=== PATIENT | male | born 1960 | race African-American/Black ===

== ENCOUNTER 2016-07-04 00:53 | Emergency (ER) | payer OTHER ==
[2016-07-04 01:03] VITALS: BP 129/69; PULSE 54; TEMP 98.1; BMI 34.7
[2016-07-04] MEDS ORDERED: OXYCODONE/APAP 5/325MG COMBO TABLET PO ONE (01:36)
--- NOTE | 2016-07-04 02:38 | PDOC ---
[id number] No Limitations - History of Present Illness Initial Comments: 07/04/16 02:46 The patient is a 55 year old male with a significant past medical history of diabetes, HIV, seizures, encephalopathy of brain, who presents to the ED with right shoulder pain that radiates down to the hand. He states he is experiencing tremors as well. He had tylenol earlier today but with no alleviation. Patient denies fever, nausea, vomiting, diarrhea, hematochezia. <Anup Yang - Last Filed: 07/04/16 02:46> <Emi Gilliam - Last Filed: 07/12/16 04:51> - General Chief Complaint: Pain Stated Complaint: PAIN IN RT ARM Time Seen by Provider: 07/04/16 01:25 Past History <Anup Yang - Last Filed: 07/04/16 02:46> - Past Medical History Diabetes: Yes HIV: Yes Seizures: Yes - Surgical History Cholecystectomy: Yes - Psycho/Social/Smoking Cessation Hx Suicidal Ideation: No Smoking History: Never smoked <Emi Gilliam - Last Filed: 07/12/16 04:51> - Past Medical History Allergies/Adverse Reactions: Allergies Allergy/AdvReac Type Severity Reaction Status Date / Time No Known Allergies Allergy Verified 07/04/16 01:03 Home Medications: Ambulatory Orders Acyclovir [Zovirax -] 1,000 mg PO DAILY 07/04/16 Calcium Carbonate [Calcium] 600 mg PO DAILY 07/04/16 Cholecalciferol (Vitamin D3) [Vitamin D3] 50,000 unit PO ASDIR 07/04/16 Clonazepam 0.25 mg PO BID 07/04/16 Elviteg/Chela/Emtric/Tenofo Ala [Genvoya Tablet] 1 each PO DAILY 07/04/16 Levetiracetam [Keppra] 3,000 mg PO DAILY 07/04/16 Metformin HCl 1,700 mg PO DAILY 07/04/16 Multivit-Min/Iron Fum/Folic AC [Kynpd-Uodpnnv-Ztktghgh Tablet] 1 tab PO DAILY Oxycodone HCl/Acetaminophen [Percocet 5/325 -] 1 tab PO Q6H #14 tablet MDD 4 05/21 Promethazine HCl [Phenergan -] 400 mg PO DAILY 07/04/16 Review of Systems - Review of Systems Comments:: 07/04/16 02:46 GENERAL/CONSTITUTIONAL: No fever or chills. No weakness. HEAD, EYES, EARS, NOSE AND THROAT: No change in vision. No ear pain or discharge. No sore throat. CARDIOVASCULAR: No chest pain or shortness of breath. RESPIRATORY: No cough, wheezing, or hemoptysis. GASTROINTESTINAL: No nausea, vomiting, diarrhea or constipation. GENITOURINARY: No dysuria, frequency, or change in urination. MUSCULOSKELETAL: + right shoulder pain radaiting down to the right hand. No neck or back pain. SKIN: No rash NEUROLOGIC: No headache, vertigo, loss of consciousness, or change in strength/ sensation. ENDOCRINE: No increased thirst. No abnormal weight change. HEMATOLOGIC/LYMPHATIC: No anemia, easy bleeding, or history of blood clots. ALLERGIC/IMMUNOLOGIC: No hives or skin allergy. <Anup Yang - Last Filed: 07/04/16 02:46> *Physical Exam - Vital Signs Last Vital Signs Temp Pulse Resp BP Pulse Ox 98.1 F 54 L 18 129/69 99 07/04/16 01:00 07/04/16 01:00 07/04/16 01:00 07/04/16 01:00 07/04/16 01:00 - Physical Exam Comments: 07/04/16 02:47 GENERAL: Awake, alert, and fully oriented, in no acute distress HEAD: No signs of trauma EYES: PERRLA, EOMI, sclera anicteric, conjunctiva clear ENT: Auricles normal inspection, hearing grossly normal, nares patent, oropharynx clear without exudates. Moist mucosa NECK: Normal ROM, supple, no lymphadenopathy, JVD, or masses LUNGS: Breath sounds equal, clear to auscultation bilaterally. No wheezes, and no crackles HEART: Regular rate and rhythm, normal S1 and S2, no murmurs, rubs or gallops ABDOMEN: Soft, nontender, normoactive bowel sounds. No guarding, no rebound. No masses EXTREMITIES: Normal range of motion, no edema. No clubbing or cyanosis. No cords, erythema, or tenderness NEUROLOGICAL: Cranial nerves II through XII grossly intact. Normal speech, normal gait SKIN: Warm, Dry, normal turgor, no rashes or lesions noted. <Anup Yang - Last Filed: 07/04/16 02:46> - Vital Signs Last Vital Signs Temp Pulse Resp BP Pulse Ox 98.1 F 54 L 18 129/69 99 07/04/16 01:00 07/04/16 01:00 07/04/16 01:00 07/04/16 01:00 07/04/16 01:00 <Emi Gilliam - Last Filed: 07/12/16 04:51> Medical Decision Making - Medical Decision Making 07/12/16 04:49 Pt comes with right upper extremity pain, and states that he didn't injure it, and that he has no broken bones and he has FROM, but he has an ache in the arm and wants to make sure that nothing is wrong. Exam is normal. He was sent for a duplex doppler ultrasound to r/oDVT. No DVT present. Pt is satisfied and feeling better. He was discharged to follow with his PMD. <Emi Gilliam - Last Filed: 07/12/16 04:51> *DC/Admit/Observation/Transfer - Attestations Scribe Attestion: 07/04/16 02:47 Documentation prepared by Anup Yang, acting as medical assistant instructor for Emi Gilliam MD. <Anup Yang - Last Filed: 07/04/16 02:46> <Emi Gilliam - Last Filed: 07/12/16 04:51> Diagnosis at time of Disposition: Multiple joint pain - Discharge Dispostion Disposition: HOME - Prescriptions Prescriptions: Oxycodone HCl/Acetaminophen [Percocet 5/325 -] 1 tab PO Q6H #14 tablet MDD 4 - Referrals Referrals: STAFF,NOT ON [Primary Care Provider] -
[2016-07-04] MEDS ORDERED: OXYCODONE/APAP 5/325MG COMBO TABLET ONE (03:11)
== END 2016-07-04 04:00 | disposition home or self-care (01) ==
LOC: JER 00:53
DX: M25.511 Pain in right shoulder (principal); E11.9 Type 2 diabetes mellitus without complications; Z21 Asymptomatic human immunodeficiency virus [HIV] infection status
CPT/HCPCS: 93971; 99282-25

== ENCOUNTER 2018-02-20 04:38 | Emergency (ER) | payer SELFPAY ==
[2018-02-20] MEDS ORDERED: ALBUTEROL SO4 2.5/IPRATROPIUM 0.5 INH SOL 3 ML VIAL.NEB. NEB ONE ×2 (05:53→05:56)
--- NOTE | 2018-02-20 05:54 | PDOC ---
History of Present Illness - General Chief Complaint: Cold Symptoms Stated Complaint: SEIZURE,COUGHING Time Seen by Provider: 02/20/18 05:24 History Source: Patient Exam Limitations: No Limitations - History of Present Illness Initial Comments: 02/20/18 05:49 Patient is a 57-year-old male with history of HTN, diabetes, HIV positive CD4 980 VL undetectable, HIV encephalitis, complaining of a cough x 2-3 days. Cough is nonproductive but has been persistently worse that it keeps him up at night, last night did not get any sleep. Reports that he has been having body ache. Denies chills fevers, nausea, vomiting. He does not take the flu shot. Patient also complains of seizure episodes since 4 days. States he had 3 episodes of seizure or days ago and then had 1 episode last night. He reports he is compliant with all his medications and has been on the same dose of Keppra and phenytoin for the past 8 years. States he called his neurologist, however, is expecting a call him back today to give him an appointment to come in for evaluation. PMD: Nerissa Kevin NEURO: [place] PMHX: as above PSOCHX: (-) cig, (-) etoh, (-) drug ALL: NKDA GENERAL/CONSTITUTIONAL: [No fever or chills. No weakness. No weight change.] HEAD, EYES, EARS, NOSE AND THROAT: [No change in vision. No ear pain or discharge. No sore throat.] CARDIOVASCULAR: [No chest pain or shortness of breath.] RESPIRATORY: (+) cough, (-) wheezing, or hemoptysis.] GASTROINTESTINAL: [No nausea, vomiting, diarrhea or constipation. No rectal bleeding.] GENITOURINARY: [No dysuria, frequency, or change in urination.] MUSCULOSKELETAL: (+) joint or muscle swelling or pain. No neck or back pain.] SKIN AND BREASTS: [No rash or easy bruising.] NEUROLOGIC: [No headache, vertigo, loss of consciousness, or loss of sensation.] PSYCHIATRIC: [No depression or anxiety.] ENDOCRINE: [No increased thirst. No abnormal weight change.] HEMATOLOGIC/LYMPHATIC: [No anemia, easy bleeding, or history of blood clots.] ALLERGIC/IMMUNOLOGIC: [No hives or skin allergy. No latex allergy.] GENERAL: [The patient is awake, alert, and fully oriented, in no acute distress. ] HEAD: [Normal with no signs of trauma.] EYES: [Pupils equal, round and reactive to light, extraocular movements intact, sclera anicteric, conjunctiva clear.] ENT: [Ears normal, nares patent, oropharynx clear without exudates. Moist mucous membranes.] NECK: [Normal range of motion, supple without lymphadenopathy, JVD, or masses.] LUNGS: [Breath sounds equal, clear to auscultation bilaterally. No wheezes, and no crackles.] HEART: [Regular rate and rhythm, normal S1 and S2 without murmur, rub.] ABDOMEN: [Soft, nontender, normoactive bowel sounds. No guarding, no rebound. No masses.] EXTREMITIES: [Normal range of motion, no edema. No clubbing or cyanosis. No cords, erythema, or tenderness.] NEUROLOGICAL: [Cranial nerves II through XII grossly intact. Normal speech, normal gait.] PSYCH: [Normal mood, normal affect.] SKIN: [Warm, Dry, normal turgor, no rashes or lesions noted.] Past History - Past Medical History Allergies/Adverse Reactions: Allergies Allergy/AdvReac Type Severity Reaction Status Date / Time No Known Allergies Allergy Verified 02/20/18 06:50 Home Medications: Ambulatory Orders Acyclovir [Zovirax -] 1,000 mg PO DAILY 07/04/16 Calcium Carbonate [Calcium] 600 mg PO DAILY 07/04/16 Cholecalciferol (Vitamin D3) [Vitamin D3] 50,000 unit PO ASDIR 07/04/16 Clonazepam 0.25 mg PO BID 07/04/16 Elviteg/Cob/Emtri/Tenof Alafen [Genvoya Tablet] 1 each PO DAILY 07/04/16 Levetiracetam [Keppra] 3,000 mg PO DAILY 07/04/16 Multivit-Min/Iron Fum/Folic AC [Srcbn-Ancolfm-Pxjvhlph Tablet] 1 tab PO DAILY Oxycodone HCl/Acetaminophen [Percocet 5/325 -] 1 tab PO Q6H #14 tablet MDD 4 05/21 Promethazine HCl [Phenergan -] 400 mg PO DAILY 07/04/16 metFORMIN HCL [Metformin HCl] 1,700 mg PO DAILY 07/04/16 Diabetes: Yes Seizures: Yes - Surgical History Cholecystectomy: Yes - Suicide/Smoking/Psychosocial Hx Smoking History: Never smoked ED Treatment Course - RADIOLOGY Radiology Studies Ordered: Category Date Time Status CHEST PA & LAT [RAD] Stat Radiology 02/20/18 05:35 Ordered Medical Decision Making - Medical Decision Making 02/20/18 05:49 Patient is a 57-year-old male with history of HTN, diabetes, HIV positive CD4 980 VL undetectable, HIV encephalitis, complaining of a cough x 2-3 days. Cough is nonproductive but has been persistently worse that it keeps him up at night, last night did not get any sleep. Reports that he has been having some chills and body ache. Denies fevers, nausea, vomiting. Patient also complains of seizure episodes since 4 days. States he had 3 episodes of seizure or days ago and then had 1 episode last night. He reports he is compliant with all his medications. States he called his neurologist, however would call him back today to give him an appointment. cxr, neb treatment flu swab 02/20/18 07:00 Endorsed to the a.m. team request official reading on the x-ray. Follow flu swab. *DC/Admit/Observation/Transfer Diagnosis at time of Disposition: Cough, Seizure - Referrals - Patient Instructions - Post Discharge Activity
[2018-02-20 06:02] VITALS: PULSE 75; BMI 31.3
--- NOTE | 2018-02-20 07:17 | PDOC ---
*Physical Exam - Vital Signs Last Vital Signs Temp Pulse Resp BP Pulse Ox 98.0 F 75 18 132/80 96 02/20/18 04:50 02/20/18 04:50 02/20/18 04:50 02/20/18 04:50 02/20/18 04:50 - Physical Exam General Appearance: Yes: Nourished, Appropriately Dressed. No: Apparent Distress Respiratory/Chest: positive: Lungs Clear, Normal Breath Sounds. negative: Chest Tender, Respiratory Distress, Accessory Muscle Use, Rhonchi, Stridor, Wheezing Integumentary: positive: Normal Color, Dry, Warm Neurologic: positive: Fully Oriented, Alert, Normal Mood/Affect, Normal Response ED Treatment Course - Medications Given in the ED: ED Medications Discontinued Medications Generic Name Dose Route Start Last Admin Trade Name Freq PRN Reason Stop Dose Admin Albuterol/Ipratropium 1 amp 02/20/18 05:53 02/20/18 05:59 Duoneb - NEB 02/20/18 05:54 1 amp ONCE ONE Administration Medical Decision Making - Medical Decision Making 02/20/18 07:16 Sign out received from STEFFANY Pierre; pt presenting with dry cough, HIV positive. Pending CXR read and influenza testing. Pt also reported having multiple seizures this past week, but has not had a seizure while in the ED or in the past 24 hours. Pt states he has a call out to his neurologist at [facility] for a new appointment. Pt states he has an appointment for 03/27/18, however, he would like to be seen sooner. 02/20/18 07:56 CXR with atelectsis, No gross infiltate at this time. However, given cough with atelectisis on CXR, will treat preliminarily with abx. Rapid flu negative at this time. Pt reports feeling well and would like to go home. Vitals stable, afebrile. O2 sat 98%. DC home with PCP and neurology follow up. I discussed the physical exam findings, ancillary test results and final diagnoses with the patient. I answered all of the patient's questions. The patient was satisfied with the care received and felt comfortable with the discharge plan and treatment plan. The Patient agrees to follow up with the primary care physician/specialist within 24-72 hours. Return precautions were given. *DC/Admit/Observation/Transfer Diagnosis at time of Disposition: Cough, Seizure - Discharge Dispostion Disposition: HOME Condition at time of disposition: Stable Decision to Admit order: No - Prescriptions Prescriptions: Albuterol Sulfate Inhaler - [Ventolin HFA Inhaler -] 1 - 2 inh PO Q4H #1 inhaler Azithromycin [Zithromax 250mg Tablets -] 250 mg PO UTDICT #6 tab Guaifenesin Dm [Robitussin Dm -] 10 ml PO Q6H #200 ml - Referrals Referrals: Pedro Schwartz MD [Staff Physician] - - Patient Instructions Additional Instructions: Your flu testing was negative today. Your chest x-ray showed some atelectasis. Given your cough we will treat with antibiotics at this time. Take the azithromycin as prescribed. Please follow-up with your neurologist for your seizures. Continue all medication as previously prescribed. Follow-up with her primary care doctor in 3-5 days for your cough. If you do not have one a referral has been provided. Return to the emergency department for fevers, chills, worsening cough despite treatment, lightheadedness, chest pain, or if you have any changes in your symptoms. - Post Discharge Activity Forms/Work/School Notes: Back to Work
[2018-02-20 08:17] VITALS: BP 114/75; TEMP 98.4
== END 2018-02-20 08:16 | disposition home or self-care (01) ==
LOC: JER 04:38
PROC: 3E0F7GC Introduction of Other Therapeutic Substance into Respiratory Tract, Via Natural or Artificial Opening (ICD-10-PCS; principal; 2018-02-20)
DX: R05 Cough (principal); G40.909 Epilepsy, unspecified, not intractable, without status epilepticus; I10 Essential (primary) hypertension; E11.9 Type 2 diabetes mellitus without complications; Z79.84 Long term (current) use of oral hypoglycemic drugs; Z21 Asymptomatic human immunodeficiency virus [HIV] infection status
CPT/HCPCS: 71046-TC-FY; 87804; 99283-25

== ENCOUNTER 2024-03-05 18:48 | Inpatient (IN) | payer SELFPAY ==
[2024-03-05] MEDS ORDERED: levETIRAcetam 500 MG/5 ML INJECTION VIAL IVPB ONE (19:40)
[2024-03-05] MEDS: SODIUM CHLORIDE 0.9% 500 ML INFUS.BAG IV ONE (20:08)
[2024-03-05] MEDS: levETIRAcetam 500 MG/5 ML INJECTION VIAL IVPB ONE (20:08)
[2024-03-05 20:16] LABS: BASO % 0.5 % (0-2.0); EOS % 0.4 % (0-4.5); HEMATOCRIT 40.9 % (35.4-49); HEMOGLOBIN 13.3 GM/dL (11.7-16.9); LYMPH % 18.7 % (8-40); MCH 30.2 pg (25.7-33.7); MCHC 32.6 g/dl (32.0-35.9); MEAN CELL VOLUME 92.6 fl (80-96); MEAN PLT VOLUME 9.7 fl (7.5-11.1); MONO % 13.1 % (3.8-10.2); NEUT % 67.3 % (42.8-82.8); PLATELET COUNT 197 10^3/uL (134-434); RBC 4.42 M/mm3 (4.00-5.60); RDW 18.1 % (11.9-15.9); WHITE BLOOD COUNT 9.8 K/mm3 (4.0-10.0)
[2024-03-05 20:30] LABS: ACTIVATED PTT 34.8 SECONDS (25.2-36.5); INR 1.04 (0.83-1.09); PROTHROMBIN TIME (PATIENT) 11.9 SEC (9.7-13.0)
[2024-03-05 20:43] LABS: POTASSIUM 3.8 mmol/L (3.5-5.1)
[2024-03-05 20:45] LABS: ALBUMIN 3.1 g/dl (3.4-5.0); BLOOD UREA NITROGEN 29.5 mg/dL (7-18); CALCIUM 9.8 mg/dL (8.5-10.1); MAGNESIUM 2.2 mg/dL (1.8-2.4)
[2024-03-05 20:48] LABS: CREATININE 1.3 mg/dL (0.55-1.3)
[2024-03-05 20:49] LABS: LACTIC ACID 2.4 mmol/L (0.4-2.0); PHOSPHOROUS 2.5 mg/dL (2.5-4.9)
[2024-03-05 20:50] LABS: BILIRUBIN,TOTAL 0.3 mg/dL (0.2-1)
[2024-03-05] MEDS ORDERED: CEFTRIAXONE 1 G/50 ML PREMIX 50 ML IVPB ONE (21:16)
[2024-03-05] MEDS ORDERED: AZITHROMYCIN IVPB 500 MG/250 ML BAG IVPB ONE (21:16)
[2024-03-05] MEDS: CEFTRIAXONE 1,000 MG in DEXTROSE 5%-WATER - 50 ML IVPB ONE (21:24)
[2024-03-05] MEDS: AZITHROMYCIN IVPB 500 MG in DEXTROSE 5%-WATER - 250 ML IVPB ONE (21:46)
[2024-03-05] MEDS ORDERED: HEPARIN NA (PORCINE) 5,000 UNITS/ML 1ML VIAL ONE (22:46)
[2024-03-05] MEDS: HEPARIN NA (PORCINE) 5,000 UNITS/ML 1ML VIAL SQ SCH (22:57)
[2024-03-05] MEDS ORDERED: INSULIN ASPART SLIDING SCALE (NOVOLOG) 1 VIAL SQ ONE (23:08)
[2024-03-05] MEDS: INSULIN ASPART SLIDING SCALE (NOVOLOG) 1 VIAL SQ SCH (23:17)
[2024-03-06 04:30] LABS: EPI CELLS 4 /uL (0-25.1); HYALINE CASTS 0 /uL (0-3.1); URINE APPEARANCE Error; URINE BACTERIA 3 /uL (0-1359); URINE BILIRUBIN NEGATIVE (NEGATIVE); URINE COLOR YELLOW; URINE GLUCOSE (UA) 3+ (NEGATIVE); URINE KETONE TRACE (NEGATIVE); URINE LEUK ESTERASE NEGATIVE (NEGATIVE); URINE NITRITE NEGATIVE (NEGATIVE); URINE PROTEIN 1+ (NEGATIVE); URINE RBC 7 /uL (0-23.9); URINE UROBILINOGEN 0.2 mg/dL (0.2-1.0); URINE WBC 11 /uL (0-25.8)
[2024-03-06 05:20] LABS: LACTIC ACID 2.5 mmol/L (0.4-2.0)
[2024-03-06] MEDS ORDERED: ALBUTEROL SO4 HFA INHALER IH PRN (05:34)
[2024-03-06] MEDS ORDERED: PATIENT'S OWN MEDICATION (NON-FORMULARY) (Cholecalciferol (Vitamin D3) [Vitamin D3] 50,000 PO SCH (05:45)
[2024-03-06] MEDS: SODIUM CHLORIDE 1,000 ML IV SCH (06:06)
[2024-03-06 08:55] LABS: BASO % 0.6 % (0-2.0); EOS % 0.1 % (0-4.5); HEMATOCRIT 35.3 % (35.4-49); HEMOGLOBIN 11.7 GM/dL (11.7-16.9); LYMPH % 28.4 % (8-40); MCH 30.4 pg (25.7-33.7); MCHC 33.1 g/dl (32.0-35.9); MEAN CELL VOLUME 91.8 fl (80-96); MEAN PLT VOLUME 9.3 fl (7.5-11.1); MONO % 14.5 % (3.8-10.2); NEUT % 56.4 % (42.8-82.8); PLATELET COUNT 185 10^3/uL (134-434); RBC 3.85 M/mm3 (4.00-5.60); RDW 18.2 % (11.9-15.9); WHITE BLOOD COUNT 8.7 K/mm3 (4.0-10.0)
[2024-03-06 09:12] LABS: POTASSIUM 3.5 mmol/L (3.5-5.1)
[2024-03-06 09:18] LABS: ALBUMIN 2.6 g/dl (3.4-5.0); CALCIUM 8.6 mg/dL (8.5-10.1)
[2024-03-06 09:19] LABS: BLOOD UREA NITROGEN 17.1 mg/dL (7-18)
[2024-03-06 09:22] LABS: CREATININE 0.9 mg/dL (0.55-1.3); PHOSPHOROUS 2.6 mg/dL (2.5-4.9)
[2024-03-06 09:23] LABS: BILIRUBIN,TOTAL 0.9 mg/dL (0.2-1); TOT PROT 6.8 g/dl (6.4-8.2)
[2024-03-06] MEDS: MULTIVITAMINS THER W-MINERALS COMBO TABLET (FP) PO SCH (10:09)
[2024-03-06] MEDS: CALCIUM (OYSTER SHELL) 500 MG TABLET (FP) PO SCH (10:10)
[2024-03-06] MEDS: ENOXAPARIN NA (PORCINE) 40 MG/0.4 ML DISP.SYRIN SQ SCH (10:10)
[2024-03-06] MEDS: levETIRAcetam 500 MG TABLET (FP) PO SCH (12:21)
[2024-03-06] MEDS: DIVALPROEX SODIUM 250 MG TABLET E.C. PO SCH (12:21)
[2024-03-06] MEDS: ASPIRIN COATED 81 MG TABLET.EC PO SCH (12:21)
[2024-03-06] MEDS: LISINOPRIL 20 MG TABLET PO SCH (12:21)
[2024-03-06] MEDS: valACYclovir HCL 500 MG TABLET (FP) PO SCH (12:21)
[2024-03-06] MEDS ORDERED: CEFTRIAXONE 1 GM in DEXTROSE 5%-WATER - 50 ML IVPB SCH (14:45)
[2024-03-06] MEDS: CEFTRIAXONE 1 G/50 ML PREMIX 50 ML IVPB SCH (15:33)
[2024-03-06] MEDS: ACYCLOVIR 800 MG TABLET PO SCH (18:14)
[2024-03-06] MEDS: levETIRAcetam 250 MG TABLET PO SCH (18:14)
[2024-03-06] MEDS: CLONAZEPAM 0.25 MG PO SCH (18:14)
[2024-03-06] MEDS: ROSUVASTATIN CA 20 MG TABLET PO SCH (21:34)
[2024-03-06] MEDS: GABAPENTIN 100 MG CAPSULE PO SCH (21:35)
[2024-03-06] MEDS ORDERED: ROSUVASTATIN CA 40 MG TABLET PO SCH (22:00)
[2024-03-07 09:28] LABS: POTASSIUM 3.7 mmol/L (3.5-5.1)
[2024-03-07 09:34] LABS: BASO % 0.3 % (0-2.0); EOS % 0.7 % (0-4.5); HEMATOCRIT 35.1 % (35.4-49); HEMOGLOBIN 11.4 GM/dL (11.7-16.9); LYMPH % 34.8 % (8-40); MCH 30.2 pg (25.7-33.7); MCHC 32.5 g/dl (32.0-35.9); MEAN CELL VOLUME 92.8 fl (80-96); MONO % 14.8 % (3.8-10.2); NEUT % 49.4 % (42.8-82.8); PLATELET COUNT 184 10^3/uL (134-434); RBC 3.78 M/mm3 (4.00-5.60); RDW 17.8 % (11.9-15.9); WHITE BLOOD COUNT 8.4 K/mm3 (4.0-10.0)
[2024-03-07 09:39] LABS: ALBUMIN 2.4 g/dl (3.4-5.0); BLOOD UREA NITROGEN 11.4 mg/dL (7-18)
[2024-03-07 09:40] LABS: CALCIUM 8.4 mg/dL (8.5-10.1)
[2024-03-07 09:42] LABS: CREATININE 0.8 mg/dL (0.55-1.3)
[2024-03-07 09:43] LABS: BILIRUBIN,TOTAL 0.5 mg/dL (0.2-1); TOT PROT 6.4 g/dl (6.4-8.2)
[2024-03-07 16:31] VITALS: BMI 30.2
[2024-03-07] MEDS: ACETAMINOPHEN 325 MG TABLET (FP) PO PRN (16:36)
[2024-03-07 21:00] LABS: EPI CELLS 5 /uL (0-25.1); HYALINE CASTS 0 /uL (0-3.1); URINE APPEARANCE CLEAR; URINE BACTERIA 1 /uL (0-1359); URINE BILIRUBIN NEGATIVE (NEGATIVE); URINE COLOR YELLOW; URINE GLUCOSE (UA) 3+ (NEGATIVE); URINE KETONE TRACE (NEGATIVE); URINE LEUK ESTERASE NEGATIVE (NEGATIVE); URINE NITRITE NEGATIVE (NEGATIVE); URINE PROTEIN 1+ (NEGATIVE); URINE RBC 21 /uL (0-23.9); URINE WBC 8 /uL (0-25.8)
[2024-03-08] MEDS: BICTEGRAV/EMTRICIT/TENOFOV (BIKTARVY) 50-200-25 MG TABLET PO SCH (08:47)
[2024-03-08 09:33] LABS: BASO % 0.4 % (0-2.0); EOS % 1.1 % (0-4.5); HEMATOCRIT 34.6 % (35.4-49); LYMPH % 31.6 % (8-40); MCH 29.7 pg (25.7-33.7); MCHC 31.9 g/dl (32.0-35.9); MEAN PLT VOLUME 8.6 fl (7.5-11.1); MONO % 13.6 % (3.8-10.2); NEUT % 53.3 % (42.8-82.8); PLATELET COUNT 196 10^3/uL (134-434); RBC 3.72 M/mm3 (4.00-5.60); RDW 17.2 % (11.9-15.9); WHITE BLOOD COUNT 6.2 K/mm3 (4.0-10.0)
[2024-03-08 11:37] LABS: POTASSIUM 3.7 mmol/L (3.5-5.1)
[2024-03-08 11:52] LABS: CALCIUM 8.9 mg/dL (8.5-10.1)
[2024-03-08 11:53] LABS: ALBUMIN 2.2 g/dl (3.4-5.0); BLOOD UREA NITROGEN 10.7 mg/dL (7-18); MAGNESIUM 2.1 mg/dL (1.8-2.4)
[2024-03-08 11:56] LABS: CREATININE 0.8 mg/dL (0.55-1.3)
[2024-03-08 11:57] LABS: BILIRUBIN,TOTAL 0.3 mg/dL (0.2-1); TOT PROT 6.4 g/dl (6.4-8.2)
[2024-03-08 17:07] LABS: HIV INTERPRETATION PRESUMPTIVE POSITIVE (NEGATIVE)
[2024-03-09 09:49] LABS: BASO % 0.6 % (0-2.0); EOS % 0.3 % (0-4.5); HEMATOCRIT 36.4 % (35.4-49); HEMOGLOBIN 12.1 GM/dL (11.7-16.9); LYMPH % 23.2 % (8-40); MCH 30.2 pg (25.7-33.7); MCHC 33.1 g/dl (32.0-35.9); MEAN CELL VOLUME 91.2 fl (80-96); MEAN PLT VOLUME 8.2 fl (7.5-11.1); MONO % 13.8 % (3.8-10.2); NEUT % 62.1 % (42.8-82.8); PLATELET COUNT 237 10^3/uL (134-434); RDW 17.4 % (11.9-15.9); WHITE BLOOD COUNT 6.6 K/mm3 (4.0-10.0)
[2024-03-09 10:12] LABS: POTASSIUM 4.1 mmol/L (3.5-5.1)
[2024-03-09 10:15] LABS: CALCIUM 9.1 mg/dL (8.5-10.1)
[2024-03-09 10:16] LABS: ALBUMIN 2.4 g/dl (3.4-5.0); BLOOD UREA NITROGEN 10.5 mg/dL (7-18)
[2024-03-09 10:19] LABS: CREATININE 0.9 mg/dL (0.55-1.3)
[2024-03-09 10:20] LABS: BILIRUBIN,TOTAL 0.3 mg/dL (0.2-1)
[2024-03-09 14:45] LABS: EPI CELLS 7 /uL (0-25.1); HYALINE CASTS 0 /uL (0-3.1); URINE APPEARANCE CLEAR; URINE BACTERIA 2 /uL (0-1359); URINE BILIRUBIN NEGATIVE (NEGATIVE); URINE COLOR YELLOW; URINE GLUCOSE (UA) TRACE (NEGATIVE); URINE KETONE 1+ (NEGATIVE); URINE LEUK ESTERASE TRACE (NEGATIVE); URINE NITRITE NEGATIVE (NEGATIVE); URINE PROTEIN 1+ (NEGATIVE); URINE RBC 19 /uL (0-23.9); URINE WBC 35 /uL (0-25.8)
[2024-03-09] MEDS: ACETAMINOPHEN 1000 MG/100 ML BAG IVPB ONE (15:09)
[2024-03-09] MEDS: SODIUM CHLORIDE 1,000 ML IV SCH (16:08)
[2024-03-09] MEDS: CEFAZOLIN 1 GM/D5W 1 GM/50 ML BAG IVPB SCH (18:02)
[2024-03-10] MEDS: clonazePAM 0.25 MG ODT TABLETS SL PRN (01:52)
[2024-03-10 08:50] LABS: HEMATOCRIT 37.5 % (35.4-49); HEMOGLOBIN 12.1 GM/dL (11.7-16.9); MCH 29.8 pg (25.7-33.7); MCHC 32.2 g/dl (32.0-35.9); MEAN CELL VOLUME 92.4 fl (80-96); PLATELET COUNT 241 10^3/uL (134-434); RBC 4.06 M/mm3 (4.00-5.60); WHITE BLOOD COUNT 7.7 K/mm3 (4.0-10.0)
[2024-03-10 09:17] LABS: POTASSIUM 4.1 mmol/L (3.5-5.1)
[2024-03-10 09:20] LABS: ALBUMIN 2.4 g/dl (3.4-5.0); BLOOD UREA NITROGEN 12.4 mg/dL (7-18)
[2024-03-10 09:23] LABS: CREATININE 0.9 mg/dL (0.55-1.3)
[2024-03-10 09:24] LABS: BILIRUBIN,TOTAL 0.4 mg/dL (0.2-1); TOT PROT 7.1 g/dl (6.4-8.2)
[2024-03-10] MEDS: ACETAMINOPHEN 325 MG TABLET (FP) PO PRN (09:51)
[2024-03-10 10:03] LABS: ANISOCYTOSIS 0; HELMET CELLS 0; HOWELL-JOLLY BODIES 0; MACROCYTOSIS 0; OVALOCYTE 0; ROULEAU 0; SICKELED CELLS 0; TARGET CELLS 0; TEAR DROP CELLS 0; TOXIC GRANULATION 0
[2024-03-10] MEDS: ALBUTEROL SO4 2.5/IPRATROPIUM 0.5 INH SOL 3 ML VIAL.NEB. NEB PRN (10:53)
[2024-03-10] MEDS: VANCOMYCIN/WATER 1250 MG 1,250 MG/250 ML BAG IVPB SCH (13:05)
[2024-03-10 19:03] LABS: ALLENS TEST POSITIVE; ARTERIAL BLD GAS O2 SATURATION 94.6 % (95-98); ARTERIAL BLOOD GAS BASE EXCESS 1.1 mmol/L (-2-2); ARTERIAL BLOOD GAS PO2 67.5 mmHg (80-100); ARTERIAL BLOOD GAS pH 7.467 (7.350-7.450)
[2024-03-10] MEDS ORDERED: CEFTRIAXONE 2 GM-D5W BAG 2 GM/50 ML BAG IVPB ONE (19:45)
[2024-03-10] MEDS: ACETAMINOPHEN 1000 MG/100 ML BAG IVPB PRN (21:15)
[2024-03-10] MEDS: ACYCLOVIR INJECTION 500 MG in DEXTROSE 5%-WATER - 100 ML IVPB SCH (21:32)
[2024-03-10 21:43] VITALS: RESP 18
[2024-03-10] MEDS: CEFTRIAXONE 1 G/50 ML PREMIX 50 ML IVPB ONE (23:42)
[2024-03-11] MEDS ORDERED: INSULIN (LEVEMIR) 100 UNITS/ML UNITS SQ ONE (07:38)
[2024-03-11 09:53] LABS: BASO % 0.5 % (0-2.0); EOS % 2.1 % (0-4.5); HEMATOCRIT 35.4 % (35.4-49); HEMOGLOBIN 11.8 GM/dL (11.7-16.9); LYMPH % 22.6 % (8-40); MCH 30.3 pg (25.7-33.7); MCHC 33.2 g/dl (32.0-35.9); MEAN CELL VOLUME 91.1 fl (80-96); MEAN PLT VOLUME 7.9 fl (7.5-11.1); MONO % 12.5 % (3.8-10.2); NEUT % 62.3 % (42.8-82.8); PLATELET COUNT 246 10^3/uL (134-434); RBC 3.88 M/mm3 (4.00-5.60); RDW 17.4 % (11.9-15.9); WHITE BLOOD COUNT 6.2 K/mm3 (4.0-10.0)
[2024-03-11 10:01] LABS: POTASSIUM 4.2 mmol/L (3.5-5.1)
[2024-03-11 10:06] LABS: ALBUMIN 2.2 g/dl (3.4-5.0); BLOOD UREA NITROGEN 7.5 mg/dL (7-18); CALCIUM 8.6 mg/dL (8.5-10.1); MAGNESIUM 2.2 mg/dL (1.8-2.4)
[2024-03-11] MEDS: THIAMINE HCL 200 MG/2 ML VIAL IVPB SCH (10:06)
[2024-03-11] MEDS: SULFAMETHOXAZOLE/TRIMETHOPRIM 800MG/160MG D.S. TABLET PO SCH (10:08)
[2024-03-11 10:09] LABS: CREATININE 0.8 mg/dL (0.55-1.3)
[2024-03-11 10:12] LABS: BILIRUBIN,TOTAL 0.2 mg/dL (0.2-1); TOT PROT 6.9 g/dl (6.4-8.2)
[2024-03-11] MEDS ORDERED: THIAMINE 100 MG TABLET PO SCH ×2 (14:00)
[2024-03-12 09:21] LABS: BASO % 0.4 % (0-2.0); EOS % 3.8 % (0-4.5); HEMATOCRIT 35.1 % (35.4-49); HEMOGLOBIN 11.2 GM/dL (11.7-16.9); MCH 29.6 pg (25.7-33.7); MCHC 31.9 g/dl (32.0-35.9); MEAN CELL VOLUME 92.8 fl (80-96); MEAN PLT VOLUME 7.7 fl (7.5-11.1); MONO % 13.8 % (3.8-10.2); PLATELET COUNT 247 10^3/uL (134-434); RBC 3.78 M/mm3 (4.00-5.60); RDW 17.1 % (11.9-15.9); WHITE BLOOD COUNT 7.7 K/mm3 (4.0-10.0)
[2024-03-12 09:49] LABS: POTASSIUM 4.2 mmol/L (3.5-5.1)
[2024-03-12 09:59] LABS: ALBUMIN 2.2 g/dl (3.4-5.0); CALCIUM 8.9 mg/dL (8.5-10.1)
[2024-03-12 10:00] LABS: BLOOD UREA NITROGEN 8.8 mg/dL (7-18)
[2024-03-12 10:02] LABS: MAGNESIUM 2.1 mg/dL (1.8-2.4)
[2024-03-12 10:03] LABS: CREATININE 0.9 mg/dL (0.55-1.3)
[2024-03-12 10:04] LABS: BILIRUBIN,TOTAL 0.2 mg/dL (0.2-1); TOT PROT 6.6 g/dl (6.4-8.2)
[2024-03-12 11:40] LABS: PH,URINE 6.5 (5.0-8.0); URINE APPEARANCE CLEAR; URINE BILIRUBIN NEGATIVE (NEGATIVE); URINE COLOR YELLOW; URINE GLUCOSE (UA) NEGATIVE (NEGATIVE); URINE KETONE NEGATIVE (NEGATIVE); URINE LEUK ESTERASE NEGATIVE (NEGATIVE); URINE NITRITE NEGATIVE (NEGATIVE); URINE PROTEIN NEGATIVE (NEGATIVE); URINE UROBILINOGEN 0.2 mg/dL (0.2-1.0)
[2024-03-12] MEDS: POLYETHYLENE GLYCOL (HEALTHYLAX) 3350 17 GM PACKET PO SCH (21:34)
[2024-03-13 09:40] LABS: BASO % 0.5 % (0-2.0); EOS % 5.1 % (0-4.5); HEMATOCRIT 34.2 % (35.4-49); HEMOGLOBIN 11.5 GM/dL (11.7-16.9); LYMPH % 29.2 % (8-40); MCH 30.1 pg (25.7-33.7); MCHC 33.6 g/dl (32.0-35.9); MEAN CELL VOLUME 89.6 fl (80-96); MONO % 10.2 % (3.8-10.2); PLATELET COUNT 271 10^3/uL (134-434); RBC 3.82 M/mm3 (4.00-5.60); RDW 17.6 % (11.9-15.9); WHITE BLOOD COUNT 8.5 K/mm3 (4.0-10.0)
[2024-03-13 10:02] LABS: POTASSIUM 4.2 mmol/L (3.5-5.1)
[2024-03-13 10:06] LABS: CALCIUM 9.4 mg/dL (8.5-10.1)
[2024-03-13 10:08] LABS: ALBUMIN 2.3 g/dl (3.4-5.0); BLOOD UREA NITROGEN 8.8 mg/dL (7-18)
[2024-03-13 10:14] LABS: CREATININE 0.9 mg/dL (0.55-1.3)
[2024-03-13 10:16] LABS: BILIRUBIN,TOTAL 0.2 mg/dL (0.2-1); TOT PROT 6.9 g/dl (6.4-8.2)
[2024-03-13] MEDS: BISACODYL 5 MG TABLET.DR (FP) PO PRN (12:57)
[2024-03-13] MEDS: BISACODYL 5 MG TABLET.DR (FP) PO ONE (12:58)
[2024-03-13] MEDS: AMOX TR/POT CLAV 875MG/125MG TABLETS (FP) PO SCH (17:51)
[2024-03-13] MEDS: valACYclovir HCL 500 MG TABLET (FP) PO SCH (22:00)
[2024-03-14 08:40] LABS: BASO % 0.3 % (0-2.0); EOS % 2.1 % (0-4.5); HEMATOCRIT 35.8 % (35.4-49); HEMOGLOBIN 11.7 GM/dL (11.7-16.9); LYMPH % 21.2 % (8-40); MCHC 32.7 g/dl (32.0-35.9); MEAN CELL VOLUME 91.9 fl (80-96); MEAN PLT VOLUME 8.1 fl (7.5-11.1); MONO % 6.6 % (3.8-10.2); NEUT % 69.8 % (42.8-82.8); PLATELET COUNT 301 10^3/uL (134-434); RDW 17.5 % (11.9-15.9); WHITE BLOOD COUNT 11.2 K/mm3 (4.0-10.0)
[2024-03-14 08:41] LABS: POTASSIUM 4.5 mmol/L (3.5-5.1)
[2024-03-14 08:53] LABS: ALBUMIN 2.5 g/dl (3.4-5.0); CALCIUM 9.4 mg/dL (8.5-10.1); MAGNESIUM 2.1 mg/dL (1.8-2.4)
[2024-03-14 08:54] LABS: BLOOD UREA NITROGEN 9.7 mg/dL (7-18)
[2024-03-14 08:56] LABS: CREATININE 0.9 mg/dL (0.55-1.3)
[2024-03-14 08:57] LABS: BILIRUBIN,TOTAL 0.2 mg/dL (0.2-1)
[2024-03-14 08:59] LABS: TOT PROT 7.5 g/dl (6.4-8.2)
[2024-03-14 15:43] VITALS: BP 157/83; PULSE 76; TEMP 98
== END 2024-03-14 15:27 | disposition left against medical advice (07) | DRG 720 ==
LOC: JER 18:48 → INTOOBSV 21:18 → JERBED 21:18 → J8W 23:48 → OBSVTOIN 03-06 12:35
PROVIDERS: ADMIT Internal Medicine; ATTEND Nurse Practitioner Acute Care
DX: A41.9 Sepsis, unspecified organism (principal); J69.0 Pneumonitis due to inhalation of food and vomit; G93.41 Metabolic encephalopathy; C95.90 Leukemia, unspecified not having achieved remission; G92.8 Other toxic encephalopathy; J18.9 Pneumonia, unspecified organism; E11.9 Type 2 diabetes mellitus without complications; G40.909 Epilepsy, unspecified, not intractable, without status epilepticus; I25.10 Atherosclerotic heart disease of native coronary artery without angina pectoris; I45.10 Unspecified right bundle-branch block; Z21 Asymptomatic human immunodeficiency virus [HIV] infection status; T45.1X5A Adverse effect of antineoplastic and immunosuppressive drugs, initial encounter; Y83.9 Surgical procedure, unspecified as the cause of abnormal reaction of the patient, or of later complication, without mention of misadventure at the time of the procedure
CPT/HCPCS: 0241U-QW; 36415; 36600; 70450-TC; 70551-TC; 71045-TC-FY; 71250-TC; 74177-TC; 80053; 80164; 80177; 81003; 82140; 82803; 82962; 83036; 83605; 83735; 84100; 84443; 84484; 85025; 85610; 85730; 86359; 86360; 86803; 87040; 87077; 87086; 87389; 87635; 93005; 93010; 94640; 95816; 97116-GP; 97161-GP; 99285-25; G0378; J0131; J1644; Q9967